=== PATIENT | male | born 1950 | race Caucasian/White ===

== ENCOUNTER 2017-01-04 22:14 | Observation (INO) | payer BC ==
[~2017-01-04] VITALS: Ht 177.8 cm; Wt 84.4 kg
--- NOTE | ~2017-01-04 | EKG ---
PATIENT: JAGDISH BARNES UNIT #: [id number] Ventricular Rate: 60 BPM Atrial Rate: 60 BPM P-R Interval: 210 ms QRS Duration: 96 ms Q-T Interval: 462 ms QTC Calculation(Bezet): 462 ms P Tappen: 70 degrees Calculated R Tappen: 33 degrees Calculated T Tappen: 49 degrees Diagnosis Line: Sinus rhythm with 1st degree A-V block Diagnosis Line: Otherwise normal ECG Diagnosis Line: No previous ECGs available Diagnosis Line: Confirmed by LIS HOWELL MD ([id number]) on Diagnosis Line: 01/07/2017 8:05:39 PM INTERPRETING MD: ANA
--- NOTE | ~2017-01-04 | CR72 ---
[facility] A Service of [facility] RADIOLOGY TEXT RESULTS PATIENT: JAGDISH BARNES LOCATION: [facility] 328-01 : 52 UNIT #: [id number] AGE: [address]: Sameer Amado MD SEX: M ORDER DR: [id number] [facility] [address] [place], [place] [address] [id number] MR#: [id number] #: [id number] NAME: JAGDISH BARNES. : 1950 SEX: M STUDY DATE/TIME: 01/04/2017 UNIT: [address] ROOM: [facility] STUDY DESCRIPTION: CR Chest Single View Portable Attending Physician: Sameer Amado M.D. Ordering Physician: Venkatesh Altman M.D. Primary Care Physician: Murray Tompkins M.D. MEDICAL IMAGING REPORT This report is preliminary unless electronic signature is present EXAM Portable chest 01/04/2017 at 2231 INDICATION Syncopal episode today. Hypotension. Shortness of air with activity. FINDINGS A single AP portable view of the chest shows both lungs to be clear. The heart is normal in size. The mediastinal contour is normal. No significant bone abnormalities are seen. IMPRESSION Normal portable chest. Dictated by... Juanito Swartz Jr., M.D. THIS IS AN ELECTRONICALLY VERIFIED REPORT Juanito Swartz Jr., M.D. at 01/05/2017 8:49 PM LIZ/asif TD: 01/05/2017 09:38 JOB #: [id number] MEDICAL IMAGING REPORT Page 1 of 1 COPY
--- NOTE | ~2017-01-04 | HP ---
Unit #: [id number] #: [id number] Patient: JAGDISH BARNES [id number] [facility]. [place], [place] [address] [id number] MR#: [id number] NAME: JAGDISH BARNES. ROOM: 328 Age: 66 Sex: M Admission Date: 01/05/2017 : 1950 Attending Physician: Sameer Amado M.D. Primary Care Physician: Murray Tompkins M.D. HISTORY AND PHYSICAL DIAGNOSIS ON ADMISSION 1. Acute rhabdomyolysis. 2. Heat stroke. HISTORY OF PRESENT ILLNESS This 66-year-old patient presented to [facility] after being dizzy and having near syncopal episode. As per patient, he was in his usual state of health and was playing golf yesterday. The patient stated that he played a full 18 holes, and after that he drank a few beers. The patient stated that he felt dizzy and almost passed out; therefore, he was brought to the ER. The patient stated that for the past week he has also played softball and a game of baseball and feels like he was dehydrated. The patient states that he is in good health and he is physically very active. The patient states that he feels like he had a heat stroke. REVIEW OF SYSTEMS He denies having any chest pain, tightness, shortness of air, nausea, vomiting. He denies headache, visual problems, sore throat, rectal bleeding or blood in urine. The patient states that he had fainted. The rest of the review of systems is negative. PAST MEDICAL HISTORY 1. Hypertension. 2. Hyperlipidemia. 3. The patient denies any history of cardiac issues. PAST SURGICAL HISTORY None. SOCIAL HISTORY The patient denies smoking and drinks socially. Denies any alcohol abuse issue. ALLERGIES There are no known drug allergies. HOME MEDICATIONS 1. Lisinopril 10 mg p.o. daily. 2. Pravachol 40 mg p.o. q.h.s. 3. Enteric-coated aspirin 81 mg p.o. daily. PHYSICAL EXAMINATION GENERAL: The patient is sitting comfortably in bed, not in any obvious Unit #: [id number] #: [id number] Patient: JAGDISH BARNES acute distress. VITAL SIGNS: Vital signs reveal a temperature of 97.9, pulse 63 per minute, respiratory rate 18 per minute, blood pressure 129/70. HEENT: Examination revealed no conjunctival congestion. Sclera is nonicteric. NECK: Neck is supple. Trachea is central. RESPIRATORY: Examination revealed breath sounds are equal bilaterally. There are no wheezes or crackles. HEART: Regular rate and rhythm. S1, S2. ABDOMEN: Abdomen is soft, nontender. Bowel sounds are present in all 4 quadrants. NEUROLOGIC: The patient is alert to person, place and time. Power is 5/5 bilaterally. Sensations are grossly intact. SKIN: Skin is warm and dry. DIAGNOSTIC STUDIES LABS ON ADMISSION: The patient's creatinine on admission was 1.5; today it is 1. Sodium was 132; today it is 138. Potassium today is 4.6. AST and ALT are within normal limits. The patient's WBC is 7.1, hemoglobin 15.1, platelet count 198. IMAGING: Chest x-ray was normal. CARDIOVASCULAR: The patient had an EKG done, which revealed normal sinus rhythm with first-degree AV block. There were no acute ST changes. ASSESSMENT AND PLAN 1. Heat stroke. 2. Acute rhabdomyolysis. The patient has responded well to IV fluids, and his creatinine is back to normal. The patient likely had heat exhaustion. He is feeling much better, and he is very anxious to go home. Therefore, we will discharge the patient home with follow up with primary care physician. 3. The patient is advised to have BMP done with primary care physician in 1 week. 4. The patient is advised to call primary care physician or go to ER if his condition changes. 5. The patient is advised to continue his home medications. Dictated by Diana Piña TD: 01/05/2017 11:54 JOB #: [id number] HISTORY AND PHYSICAL Page 1 of 1 X Amberly Lu MD HISTORY AND PHYSICAL
[~2017-01-04 22:14] MED LIST: ANTIVERT PO; PHENERGAN SUPP25 MG PR; PROMETHAZINE HC25 MG PO
[2017-01-04 22:50] LABS: BASOPHIL# 0.1 X10e3 (0-0.3); EOSINOPHIL# 0.3 X10e3 (0-0.7); EOSINOPHIL% 3.8 % (0.0-7.0); HEMATOCRIT 43.3 % (38.0-50.0); HEMOGLOBIN 14.5 gm/dL (13.0-16.0); LYMPHOCYTE% 44.7 % (17.0-45.0); MEAN CELL VOLUME 92.9 FL (83-96); MEAN CORPUSCULAR HEMOGLOBIN 31.1 PG (28-34); MEAN CORPUSCULAR HGB CONC 33.5 g/dL (30-36); MEAN PLATELET VOLUME 8.7 FL (6.5-11.5); MONOCYTE# 0.5 X10e3 (0-1.0); MONOCYTE% 8.1 % (3.0-12.0); NEUTROPHIL# 2.9 X10e3 (1.5-7.1); NEUTROPHIL% 42.4 % (40-75); PLATELET COUNT 218 X10e3 (140-420); RED BLOOD COUNT 4.66 X10e (3.90-5.60); RED CELL DISTRIBUTION WIDTH 13.3 % (11.0-15.5); WHITE BLOOD COUNT 6.7 X10e3 (4.0-10.5)
[2017-01-04 22:51] LABS: DIFF IND NO
[2017-01-04 23:06] LABS: INR 1.1
[2017-01-04 23:13] LABS: ALBUMIN SERUM 4.4 g/dL (3.5-5.0); BILIRUBIN, DIRECT 0.1 mg/dL (0.0-0.2); BILIRUBIN,INDIRECT 0.8 mg/dL (0.0-0.9); BILIRUBIN,TOTAL 0.9 mg/dL (0.2-2.0); BUN/CREATININE RATIO 11.33; CALCIUM SERUM 8.9 mg/dL (8.4-10.2); CREATININE SERUM 1.5 mg/dL (0.6-1.4); GLOM FILT RATE Estimated 48.5 mL/min (>60); POTASSIUM 3.7 mmol/L (3.5-5.1); PROTEIN TOTAL SERUM 7.3 g/dL (6.0-8.3)
[2017-01-05] MEDS ORDERED: ZESTRIL10 M1 PO (01:01)
[2017-01-05] MEDS ORDERED: PRAVASTATIN SOD40 MG PO (01:03)
[2017-01-05] MEDS ORDERED: CHEWABLE ASPIRI81 MG PO (01:03)
[2017-01-05 08:27] LABS: HEMATOCRIT 45.7 % (38.0-50.0); HEMOGLOBIN 15.1 gm/dL (13.0-16.0); MEAN CELL VOLUME 94.7 FL (83-96); MEAN CORPUSCULAR HEMOGLOBIN 31.3 PG (28-34); MEAN CORPUSCULAR HGB CONC 33.1 g/dL (30-36); MEAN PLATELET VOLUME 8.5 FL (6.5-11.5); RED BLOOD COUNT 4.82 X10e (3.90-5.60); RED CELL DISTRIBUTION WIDTH 13.3 % (11.0-15.5); WHITE BLOOD COUNT 7.1 X10e3 (4.0-10.5)
[2017-01-05 08:59] LABS: CALCIUM SERUM 9.1 mg/dL (8.4-10.2); GLOM FILT RATE Estimated 79.2 mL/min (>60); POTASSIUM 4.6 mmol/L (3.5-5.1); PROTEIN TOTAL SERUM 6.7 g/dL (6.0-8.3)
== END 2017-01-05 12:50 | disposition home or self-care (01) | DRG 683 ==
LOC: CED 22:14 → CEDOF 01-05 01:00 → C3A PCU 01-05 02:02
PROVIDERS: Emergency Medicine; Internal Medicine
DX: N17.9 Acute kidney failure, unspecified (principal); M62.82 Rhabdomyolysis; I10 Essential (primary) hypertension; E78.5 Hyperlipidemia, unspecified; I44.0 Atrioventricular block, first degree; Z79.82 Long term (current) use of aspirin; Z79.899 Other long term (current) drug therapy
CPT/HCPCS: 71010; 80048; 80053; 80076; 82550; 85025; 85027; 85610; 85730; 93005; 96374; 96376; 99291; G0378; G0480